=== PATIENT | male | born 1975 | race Caucasian/White ===

== ENCOUNTER 2017-09-29 13:06 | Emergency (ER) | payer OTHER ==
[~2017-09-29] VITALS: Ht 167.6 cm; Wt 75.3 kg
[2017-09-29 13:13] VITALS: Ht 167.6 cm; Wt 75.3 kg
[2017-09-29 15:16] LABS: BASOPHIL % 0.2 % (0-2); PLATELET COUNT 280 x10^3mcL (130-400)
[2017-09-29 15:19] LABS: RED CELL DISTRIBUTION WIDTH 15.2 % (11.5-14.5)
[2017-09-29 15:23] LABS: CALCIUM 9.2 mg/dL (8.5-10.1); CHLORIDE SERUM 99 mmol/L (98-107); CREATININE SERUM 0.6 mg/dL (0.7-1.3); GFR1 > 60 mL/min; GLUCOSE SERUM 93 mg/dL (74-106); POTASSIUM SERUM 3.9 mmol/L (3.5-5.1); SODIUM SERUM 134 mmol/L (136-145)
[2017-09-29 15:28] LABS: ALKALINE PHOSPHATASE 96 U/L (46-116); ALT/SGPT 50 U/L (16-63); AST/SGOT 42 U/L (15-37); BILIRUBIN TOTAL 0.5 mg/dL (0.20-1.00); LIPASE 141 IU/L (73-393)
[2017-09-29 15:30] LABS: microscopic required? NO
[2017-09-29 15:33] LABS: TOTAL PROTEIN, SERUM 8.3 g/dL (6.4-8.2)
[2017-09-29 15:45] LABS: urine erythrocyte NEGATIVE (NEGATIVE)
[2017-09-29 17:51] VITALS: BP 135/85
== END 2017-09-29 17:51 | disposition home or self-care (01) ==
LOC: ED 13:06
PROVIDERS: Emergency Medicine
DX: K62.5 Hemorrhage of anus and rectum (principal)
CPT/HCPCS: 36415; Q0092

== ENCOUNTER 2018-02-23 20:05 | Emergency (ER) | payer OTHER ==
[~2018-02-23] VITALS: Ht 165.1 cm; Wt 78.9 kg
[2018-02-23 20:28] VITALS: Ht 165.1 cm; Wt 78.9 kg
[2018-02-23 21:38] LABS: BASOPHIL % 0.8 % (0-2); PLATELET COUNT 214 x10^3mcL (130-400)
[2018-02-23 21:53] LABS: CALCIUM 8.4 mg/dL (8.5-10.1); CARBON DIOXIDE 27.3 mmol/L (21-32); CHLORIDE SERUM 104 mmol/L (98-107); CREATININE SERUM 0.6 mg/dL (0.7-1.3); GFR1 > 60 mL/min; GLUCOSE SERUM 99 mg/dL (74-106); SODIUM SERUM 140 mmol/L (136-145)
[2018-02-23 22:00] LABS: ALBUMIN 3.6 g/dL (3.4-5.0); ALKALINE PHOSPHATASE 80 U/L (46-116); ALT/SGPT 25 U/L (16-63); AST/SGOT 20 U/L (15-37); BILIRUBIN TOTAL 0.17 mg/dL (0.20-1.00); LIPASE 140 IU/L (73-393); TOTAL PROTEIN, SERUM 7.8 g/dL (6.4-8.2)
[2018-02-23 22:46] VITALS: BP 148/92
== END 2018-02-23 22:46 | disposition home or self-care (01) ==
LOC: ED 20:05
PROVIDERS: Emergency Medicine
DX: R10.11 Right upper quadrant pain (principal); R11.0 Nausea; R20.2 Paresthesia of skin
CPT/HCPCS: 36415; J1885; Q0092

== ENCOUNTER 2018-03-17 11:17 | Emergency (ER) | payer OTHER ==
[~2018-03-17] VITALS: Ht 165.1 cm; Wt 78.5 kg
[2018-03-17 11:24] VITALS: Ht 165.1 cm; Wt 78.5 kg
[2018-03-17 14:51] VITALS: BP 161/101
== END 2018-03-17 14:51 | disposition home or self-care (01) ==
LOC: ED 11:17
DX: J02.9 Acute pharyngitis, unspecified (principal)

== ENCOUNTER 2018-08-25 14:15 | Emergency (ER) | payer MEDICAID ==
[~2018-08-25] VITALS: Ht 167.6 cm; Wt 75.3 kg
[2018-08-25 14:21] VITALS: Ht 167.6 cm; Wt 75.3 kg
[2018-08-25 15:24] LABS: BASOPHIL % 0.3 % (0-2); PLATELET COUNT 180 x10^3mcL (130-400); RED CELL DISTRIBUTION WIDTH 13.7 % (11.5-14.5)
[2018-08-25 15:31] LABS: CALCIUM 9.1 mg/dL (8.5-10.1); CARBON DIOXIDE 23.8 mmol/L (21-32); CHLORIDE SERUM 103 mmol/L (98-107); CREATININE SERUM 0.6 mg/dL (0.7-1.3); GFR1 > 60 mL/min; GLUCOSE SERUM 108 mg/dL (74-106); POTASSIUM SERUM 3.5 mmol/L (3.5-5.1); SODIUM SERUM 137 mmol/L (136-145)
[2018-08-25 15:34] LABS: ALBUMIN 4.1 g/dL (3.4-5.0); ALT/SGPT 145 U/L (16-63); AST/SGOT 142 U/L (15-37)
[2018-08-25 15:48] LABS: ALKALINE PHOSPHATASE 85 U/L (46-116); BILIRUBIN TOTAL 0.57 mg/dL (0.20-1.00); CHOLESTEROL 179 mg/dL (<200); CHOLESTEROL/HDL RATIO 2.6; HDL CHOLESTEROL 68 mg/dL (40-60); LIPASE 203 IU/L (73-393); TOTAL PROTEIN, SERUM 8.6 g/dL (6.4-8.2); TRIGLYCERIDES 56 mg/dL (<150)
[2018-08-25 15:56] LABS: FREE T4 1.1 ng/dL (0.76-1.46); FREE THYROXINE INDEX 2.8 ug/dL (1.4-4.5); T4(THYROXINE) 7.4 ug/dL (4.7-13.3)
[2018-08-25 15:59] LABS: T3 TOTAL 1.16 ng/mL
[2018-08-25 16:18] LABS: UA SPECIFIC GRAVITY 1.015 (1.005-1.035); microscopic required? YES; urine erythrocyte TRACE (NEGATIVE)
[2018-08-25 16:28] LABS: AMPHETAMINE QUAL UR NONE DETECTED (See below)
[2018-08-25 17:26] VITALS: BP 148/88
== END 2018-08-25 17:26 | disposition home or self-care (01) ==
LOC: ED 14:15
PROVIDERS: Specialist
DX: F10.239 Alcohol dependence with withdrawal, unspecified (principal)
CPT/HCPCS: 83880; 84439; G0480; J1885; J2060; J7030; Q0092